=== PATIENT | female | born 1990 | race Caucasian/White ===

== ENCOUNTER 2017-01-25 16:29 | Emergency (ER) | payer OTHER ==
[~2017-01-25] VITALS: Ht 177.8 cm; Wt 80.9 kg
[2017-01-25 19:39] VITALS: BP 128/72
== END 2017-01-25 19:39 | disposition home or self-care (01) ==
LOC: ED 16:29
DX: N75.0 Cyst of Bartholin's gland (principal)
CPT/HCPCS: J2001; J3490

== ENCOUNTER 2017-01-27 20:28 | Emergency (ER) | payer OTHER ==
[2017-01-27 20:40] VITALS: BP 145/86
== END 2017-01-27 21:15 | disposition left against medical advice (07) ==
LOC: ED 20:28
DX: Z53.21 Procedure and treatment not carried out due to patient leaving prior to being seen by health care provider (principal)